=== PATIENT | female | born 1980 | race African-American/Black ===

== ENCOUNTER 2016-11-13 14:10 | Emergency (ER) | payer SELFPAY ==
[2016-11-13 14:15] VITALS: BMI 20.5
[2016-11-13] MEDS ORDERED: NS 1000 ML 1,000 ML IV ONE (15:13)
--- NOTE | 2016-11-13 15:23 | DR.NAUSEAF ---
HPI - Time Seen Time seen: 15:05 - Primary Care Physician Primary Care Physician: KONSTANTIN NOBLES - Complaints Chief Complaint Doctors Comments: Patient admits to n/v/d since last night. Denies fever. Chief Complaint:: PT C/O N/V/D THAT STARTED LASTNIGHT.. 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 - Family History History of Family Medical Conditions: No Family Medical History: Diabetes Mellitus, Cancer, Hypertension - Social History Does patient currently use any type of tobacco product: No Have you used tobacco products in the last 12 months: No Type of Tobacco Use: None Does any household member use tobacco: No Alcohol Use: None Do you use any recreational Drugs:: No Lives With: Family Lives Where: Home - infectious screening In the last 2 months have you had wt loss of >10#?: NO Have you had fever, night sweats or hemotysis?: No Have you traveled outside the country in the last 6 months?: No Isolation: Standard ROS - Review of Systems Eyes: No Symptoms Reported ENTM: No Symptoms Reported Respiratoy: No Symptoms Reported Cardiovascular: No Symptoms Reported Gastrointestinal/Abdominal: No Symptoms Reported Genitourinary: No Symptoms Reported Neurological: No Symptoms Reported Musculoskeletal: No Symptoms Reported Integumentary: No Symptoms Reported Hematologic/Lymphatic: No Symptoms Reported Endocrine: No Symptoms Reported Psychiatric: No Symptoms Reported All Other Systems: Reviewed and Negative PE - Vital Signs Vitals: Temperature 98.8 F Pulse Rate 66 Respiratory Rate 20 Blood Pressure [Left Arm] 139/98 Blood Pressure 165/113 O2 Sat by Pulse Oximetry 100 - General Limitations: No Limitations General Appearance: In No Apparent Distress - Head Head Exam: Normal Inspection, Atraumatic - Eyes Eye exam: Normal Appearance, PERRL, EOMI - ENT ENT Exam: Normal Exam - Neck Neck Exam: Normal Inspection, Full ROM - Chest Chest Inspection: Normal Inspection - Respiratory Respiratory Exam: Normal Lung Sounds Bilat Respiratory Exam: Bilateral Clear to Auscultation - Cardiovascular Cardiovascular Exam: Regular Rate, Normal Rhythm - Abdominal Exam Abdominal Exam: Normal Inspection, Normal Bowel Sounds Abdominal Tenderness: negative: RUQ, RLQ, LUQ, LLQ, Epigastrium, Suprapubic, Diffuse, Mild, Moderate, Severe, Other - Rectal Rectal Exam: Deferred - External Exam: Female: Deferred : Speculum Exam (Female): Deferred : Bimanual Exam (female): Deferred - Extremities Extremities Exam: Normal Inspection, Full ROM - Back Back Exam: Normal Inspection, Full ROM - Neurologic Neurological Exam: Alert, Oriented X3, CN II-XII Intact - Skin Skin Exam: Warm, Dry, Intact Course - Reevaluation 1st: Improved ROR - Labs Reviewed Laboratory Results Reviewed?: Yes (strep positive) Result Diagrams: 11/13/16 15:28 11/13/16 15: Laboratory: WBC 11.0 X10^3/uL (3.6-10.0) H 11/13/16 15: RBC 4.75 X10^6/uL (3.5-5.4) 11/13/16 15: Hgb 13.2 g/dL (12.0-16.0) 11/13/16 15: Hct 38.9 % (36.0-47.0) 11/13/16 15: MCV 82.0 fL (80.0-100.0) 11/13/16 15: MCH 27.8 pg (27.0-34.0) 11/13/16 15: MCHC 33.9 g/dL (33.0-35.0) 11/13/16 15: RDW 14.4 % (11.6-16.5) 11/13/16 15: Plt Count 271 X10^3/uL (150.0-450.0) 11/13/16 15: MPV 8.5 fL (7.4-11.0) 11/13/16 15: Neut % 81.3 % (42.0-75.0) H 11/13/16 15: Lymph % 8.5 % (21.0-51.0) L 11/13/16 15: [place] % 7.9 % (0.0-13.0) 11/13/16 15: Eos % 1.4 % (0.9-2.9) 11/13/16 15:28 Baso % 0.9 % (0.2-1.0) 11/13/16 15:28 Neut # 8.9 x10^3/uL (2.2-4.8) H 11/13/16 15:28 Lymph # 0.9 X10^3/uL (1.3-2.9) L 11/13/16 15:28 [place] # 0.9 x10^3/uL (0.3-0.8) H 11/13/16 15:28 Eos # 0.1 x10^3/uL (0.0-0.2) 11/13/16 15:28 Baso # 0.1 X10^3/uL (0.0-0.1) 11/13/16 15:28 Absolute Nucleated RBC 0.0 /100WBC 11/13/16 15:28 Sodium 138 mmol/L (136-145) 11/13/16 15:28 Corrected Sodium TNP 11/13/16 15:28 Potassium 3.9 mmol/L (3.5-5.1) 11/13/16 15:28 Chloride 106 mmol/L (98-107) 11/13/16 15:28 Carbon Dioxide 25.7 mmol/L (21-32) 11/13/16 15:28 BUN 9 mg/dL (7-18) 11/13/16 15:28 Creatinine 0.95 mg/dL (0.55-1.02) 11/13/16 15:28 Est GFR (MDRD) Af Amer > 60 (>60) 11/13/16 15:28 Est GFR (MDRD) Non-Af > 60 (>60) 11/13/16 15:28 Glucose 83 mg/dL (65-99) 11/13/16 15:28 Calcium 8.6 mg/dL (8.5-10.1) 11/13/16 15:28 - Diagnosis Discharge Problem: Strep pharyngitis - Discharge Plan Condition: Stable - Follow ups/Referrals Follow ups/Referrals: Kamille Infante [Primary Care Provider] - 3 days - Instructions
[2016-11-13] MEDS ORDERED: NS 1000 ML 1,000 ML ONE (15:30)
[2016-11-13 15:42] LABS: BASOPHILS # (AUTO) 0.1 X10^3/uL (0.0-0.1); BASOPHILS % (AUTO) 0.9 % (0.2-1.0); EOSINOPHILS # (AUTO) 0.1 x10^3/uL (0.0-0.2); EOSINOPHILS % (AUTO) 1.4 % (0.9-2.9); HEMATOCRIT 38.9 % (36.0-47.0); HEMOGLOBIN 13.2 g/dL (12.0-16.0); LYMPHOCYTES # (AUTO) 0.9 X10^3/uL (1.3-2.9); LYMPHOCYTES % (AUTO) 8.5 % (21.0-51.0); MEAN CORPUSCULAR HEMOGLOBIN 27.8 pg (27.0-34.0); MEAN CORPUSCULAR HGB CONC 33.9 g/dL (33.0-35.0); MEAN PLATELET VOLUME 8.5 fL (7.4-11.0); MONOCYTES # (AUTO) 0.9 x10^3/uL (0.3-0.8); MONOCYTES % (AUTO) 7.9 % (0.0-13.0); NEUTROPHILS # (AUTO) 8.9 x10^3/uL (2.2-4.8); NEUTROPHILS % (AUTO) 81.3 % (42.0-75.0); PLATELET COUNT 271 X10^3/uL (150.0-450.0); RED BLOOD COUNT 4.75 X10^6/uL (3.5-5.4); RED CELL DISTRIBUTION WIDTH 14.4 % (11.6-16.5)
[2016-11-13 15:43] LABS: BLOOD UREA NITROGEN 9 mg/dL (7-18); CALCIUM 8.6 mg/dL (8.5-10.1); CARBON DIOXIDE 25.7 mmol/L (21-32); CHLORIDE 106 mmol/L (98-107); CREATININE 0.95 mg/dL (0.55-1.02); GLUCOSE 83 mg/dL (65-99); SODIUM 138 mmol/L (136-145); eGFR BLACK RACES > 60 (>60); eGFR NON BLACK RACES > 60 (>60)
[2016-11-13] MEDS ORDERED: ZOFRAN INJ 4 MG VIAL IVP ONE (15:56)
[2016-11-13] MEDS ORDERED: ZOFRAN INJ 4 MG VIAL ONE (15:59)
[2016-11-13 16:12] VITALS: BP 133/94
== END 2016-11-13 16:40 | disposition home or self-care (01) ==
LOC: ER 14:40
DX: J02.0 Streptococcal pharyngitis (principal)
CPT/HCPCS: 36415; 80048; 85025; 87880; 96365; 99282; 99283; A4222; J2405

== ENCOUNTER 2016-12-04 14:58 | Emergency (ER) | payer SELFPAY ==
[2016-12-04 15:04] VITALS: BP 143/92; BMI 20.5
[2016-12-04] MEDS ORDERED: TORADOL 60 MG VIAL IM ONE (15:24)
--- NOTE | 2016-12-04 15:24 | DR.HEADACH ---
HPI - Time Seen Time seen: 15:15 - Primary Care Physician Primary Care Physician: KONSTANTIN NOBLES - Complaint/Symptoms Chief Complaint Doctors Comments: Agree with statement as read. Denies history of trauma, denies wearing glasses. Admits to taking aleve 200mg on last night without relief. Chief Complaint:: PT C/O ELLIS THAT STARTED YESTERDAY AND LEFT SIDED BACK PAIN THAT FEELS LIKE SOMEONE HAS HIT HER IN IT .. 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 - Family History History of Family Medical Conditions: No Family Medical History: Diabetes Mellitus, Cancer, Hypertension - Social History Does patient currently use any type of tobacco product: No Have you used tobacco products in the last 12 months: No Type of Tobacco Use: None Does any household member use tobacco: No Alcohol Use: None Do you use any recreational Drugs:: No Lives With: Family Lives Where: Home - infectious screening In the last 2 months have you had wt loss of >10#?: NO Have you had fever, night sweats or hemotysis?: No Have you traveled outside the country in the last 6 months?: No Isolation: Standard ROS - Review of Systems Constitutional: Diaphoresis Eyes: No Symptoms Reported ENTM: No Symptoms Reported Respiratoy: No Symptoms Reported Cardiovascular: No Symptoms Reported Gastrointestinal/Abdominal: No Symptoms Reported Genitourinary: No Symptoms Reported Neurological: No Symptoms Reported Musculoskeletal: No Symptoms Reported, Hip (left hip pain with ambulation) Integumentary: No Symptoms Reported Hematologic/Lymphatic: No Symptoms Reported Endocrine: No Symptoms Reported Psychiatric: No Symptoms Reported All Other Systems: Reviewed and Negative PE - Vital Signs Vitals: Temperature 98.4 F Pulse Rate 95 Respiratory Rate 18 Blood Pressure [Left Arm] 133/94 Blood Pressure 143/92 O2 Sat by Pulse Oximetry 100 - General Limitations: No Limitations General Appearance: Alert, In No Apparent Distress - Head Head Exam: Normal Inspection, Atraumatic - Eyes Eye exam: Normal Appearance, PERRL, EOMI Eyelids: Normal Inspection: Bilateral Pupils: Regular, Round: Bilateral Sclera/Conjunctival: Normal Inspection: Bilateral - ENT ENT Exam: Normal Exam, Normal Oropharynx External Ear Exam: Normal External Inspection TM/Canal Exam: Bilateral Normal Nose Exam: Normal Nose Exam Mouth Exam: Normal Inspection Teeth Exam: Normal Inspection Throat Exam: Normal Inspection - Neck Neck Exam: Normal Inspection - Chest Chest Inspection: Normal Inspection - Respiratory Respiratory Exam: Normal Lung Sounds Bilat Respiratory Exam: Bilateral Clear to Auscultation - Cardiovascular Cardiovascular Exam: Regular Rate, Normal Rhythm - Abdominal Exam Abdominal Exam: Normal Inspection Abdominal Tenderness: negative: RUQ, RLQ, LUQ, LLQ, Epigastrium, Suprapubic, Diffuse, Mild, Moderate, Severe, Other - Extremities Extremities Exam: Normal Inspection, Other (Decreased ROM ) - Back Back Exam: Normal Inspection, Full ROM - Neurologic Neurological Exam: Alert, Oriented X3, CN II-XII Intact - Skin Skin Exam: Warm, Intact - Diagnosis Discharge Problem: Headache Qualifiers: Headache type: unspecified Headache chronicity pattern: acute headache Intractability: not intractable Qualified Code(s): R51 - Headache - Discharge Plan Condition: Stable - Follow ups/Referrals Follow ups/Referrals: NFD,None [Primary Care Provider] - 3 days - Instructions
[2016-12-04] MEDS ORDERED: ZOFRAN TAB 4 MG PO ONE (15:25)
[2016-12-04] MEDS ORDERED: ZOFRAN TAB 4 MG ONE (15:36)
[2016-12-04] MEDS ORDERED: TORADOL 60 MG VIAL ONE (15:36)
== END 2016-12-04 16:15 | disposition home or self-care (01) ==
LOC: ER 15:08
DX: R51 Headache (principal)
CPT/HCPCS: 96372; 99282; S0181; J1885